=== PATIENT | male | born 1955 | race Caucasian/White ===

== ENCOUNTER 2017-10-29 11:55 | Outpatient (CLI) | payer BC | END 2017-10-29 11:56 | disposition home or self-care (01) | LOC: BICRAD 11:55 | PROVIDERS: ATTEND Family Medicine | DX: M25.511 Pain in right shoulder (principal); M25.512 Pain in left shoulder ==

== ENCOUNTER 2017-11-17 20:45 | Emergency (ER) | payer BC ==
[2017-11-17 21:07] LABS: #Eosinphils 0.2 thou/uL (0.0-0.7); #Lymphocytes 2.6 thou/uL (1.20-3.40); #Monocytes 0.8 thou/uL (0.11-0.59); #Neutrophils 7.4 thou/uL (1.40-6.50); %Basophils 0.4 % (0.0-1.0); %Eosinophils 1.6 % (0.0-10.0); %Lymphocytes 23.3 % (21.0-51.0); %Monocytes 7.4 % (0.0-10.0); %Neutrophils 67.3 % (42.0-75.0); Mean Corpuscular HGB CONC 34.6 g/dL (32.0-36.0); Mean Corpuscular Hemoglobin 31.1 pg (27.0-31.0); Mean Corpuscular Volume 89.7 fl (80.0-94.0); Mean Platelet Volume 8.6 fL (7.4-10.4); Platelet Count 164 thou/uL (130-400); RBC Distribution Width 12.8 % (11.5-14.5)
[2017-11-17 21:33] LABS: Troponin I Less than 0.010 ng/mL (< 0.028)
[2017-11-17 21:35] LABS: INR-International Normal Ratio 1.2; PTT 32.5 SEC (22.9-36.1)
[2017-11-17 21:36] LABS: CKMB 10.9 ng/mL (0-6.6)
--- NOTE | 2017-11-17 21:49 | RAD ---
PORTABLE AP CHEST X-RAY: 11/17/2017 HISTORY: Chest pain. History of atrial fibrillation. COMPARISON: 03/21/2013 FINDINGS: The cardiac silhouette is magnified by projection. The pulmonary vasculature is within normal limits . The lungs remain clear. No other interval change. IMPRESSION: No acute cardiopulmonary process. POS: [facility]
[2017-11-17 23:45] LABS: Albumin 4.7 g/dL (3.5-5.0)
[2017-11-17 23:46] LABS: Chloride 102 mmol/L (98-107); Potassium 3.9 mmol/L (3.5-5.1); Sodium 136 mmol/L (136-145)
[2017-11-17 23:47] LABS: Calcium 9.9 mg/dL (7.8-10.44)
[2017-11-17 23:48] LABS: Glucose 143 mg/dL (70-105); Protein, Total 7.7 g/dL (6.0-8.3)
[2017-11-17 23:49] LABS: Anion Gap 11 mmol/L (10-20); Carbon Dioxide 27 mmol/L (22-29)
[2017-11-17 23:50] LABS: Alkaline Phosphatase 73 U/L (40-150); Bilirubin, Total 0.9 mg/dL (0.2-1.2)
[2017-11-17 23:51] LABS: Calc. Creatinine Clearance 0 mL/min (70-130); Estimated GFR-MDRD 81
[2017-11-17 23:52] LABS: BUN (Urea Nitrogen) 23 mg/dL (8.4-25.7)
[2017-11-17 23:53] LABS: ALT (SGPT) 50 U/L (8-55); AST (SGOT) 30 U/L (5-34)
[2017-11-17 23:54] LABS: CK (CPK) 253 U/L (30-200); Lipase 90 U/L (8-78)
== END 2017-11-17 23:56 | disposition home or self-care (01) ==
LOC: ERS 20:45
DX: Z79.82 Long term (current) use of aspirin; E11.9 Type 2 diabetes mellitus without complications; Z79.84 Long term (current) use of oral hypoglycemic drugs; E78.5 Hyperlipidemia, unspecified; Z79.899 Other long term (current) drug therapy; I48.91 Unspecified atrial fibrillation; R00.2 Palpitations; I10 Essential (primary) hypertension
CPT/HCPCS: 36415; 71045; 80053; 82553; 83690; 83880; 84484; 85025; 85610; 85730; 93005

== ENCOUNTER 2019-02-06 15:55 | Emergency (ER) | payer BC ==
--- NOTE | 2019-02-06 16:39 | RAD ---
XR Chest 1 View Portable HISTORY: Hypertension, atrial fibrillation COMPARISON: 11/17/2017 FINDINGS: The heart size is normal. The lungs are well expanded without focal areas of consolidation, pneumothorax or pleural effusions. IMPRESSION: No radiographic evidence of acute cardiopulmonary process.
[2019-02-06 17:05] LABS: #Basophils 0.1 thou/uL (0.0-0.2); #Eosinphils 0.2 thou/uL (0.0-0.7); #Lymphocytes 1.2 thou/uL (1.20-3.40); #Monocytes 0.5 thou/uL (0.11-0.59); #Neutrophils 4.3 thou/uL (1.40-6.50); %Basophils 1.2 % (0.0-1.0); %Eosinophils 2.7 % (0.0-10.0); %Lymphocytes 18.6 % (21.0-51.0); %Monocytes 8.6 % (0.0-10.0); %Neutrophils 68.9 % (42.0-75.0); Hemoglobin 16.7 g/dL (14.0-18.0); Mean Corpuscular HGB CONC 34.3 g/dL (32.0-36.0); Mean Corpuscular Hemoglobin 30.5 pg (27.0-31.0); Mean Platelet Volume 8.7 fL (7.4-10.4); Platelet Count 141 thou/uL (130-400); RBC Distribution Width 12.5 % (11.5-14.5); Red Blood Cell (RBC) Count 5.48 mill/uL (4.70-6.10); White Blood Cell (WBC) Count 6.2 thou/uL (4.8-10.8)
[2019-02-06 17:18] LABS: ALT (SGPT) 34 U/L (8-55); AST (SGOT) 29 U/L (5-34); Albumin 4.2 g/dL (3.4-4.8); Alkaline Phosphatase 64 U/L (40-150); Anion Gap 13 mmol/L (10-20); BUN (Urea Nitrogen) 18 mg/dL (8.4-25.7); Bilirubin, Total 1.4 mg/dL (0.2-1.2); Calc. Creatinine Clearance 0 mL/min (70-130); Calcium 9.6 mg/dL (7.8-10.44); Carbon Dioxide 23 mmol/L (23-31); Chloride 105 mmol/L (98-107); Estimated GFR-MDRD 77; Globulin 2.8 g/dL (2.4-3.5); Glucose 175 mg/dL (80-115); Magnesium 2.2 mg/dL (1.6-2.6); Potassium 3.7 mmol/L (3.5-5.1); Sodium 137 mmol/L (136-145)
== END 2019-02-06 17:58 | disposition home or self-care (01) ==
LOC: ERS 15:55
DX: I48.0 Paroxysmal atrial fibrillation (principal); E11.9 Type 2 diabetes mellitus without complications; E78.5 Hyperlipidemia, unspecified; I10 Essential (primary) hypertension; Z79.899 Other long term (current) drug therapy; Z79.82 Long term (current) use of aspirin
CPT/HCPCS: 36415; 71045; 80053; 83735; 85025; 93005; 94760; 96360

== ENCOUNTER 2023-10-18 11:22 | Outpatient (CLI) | payer OTHER, MEDICARE | END 2023-10-18 11:23 | disposition home or self-care (01) | LOC: BICRAD 11:22 | PROVIDERS: ATTEND Family Medicine | DX: M54.50 Low back pain, unspecified (principal); M47.816 Spondylosis without myelopathy or radiculopathy, lumbar region; M46.06 Spinal enthesopathy, lumbar region; M25.78 Osteophyte, vertebrae; M89.38 Hypertrophy of bone, other site; M43.8X6 Other specified deforming dorsopathies, lumbar region | CPT/HCPCS: 72110 ==